=== PATIENT | male | born 1950 | race Caucasian/White ===

== ENCOUNTER 2016-09-11 14:46 | Emergency (ER) | payer MEDICARE, OTHER ==
--- NOTE | ~2016-09-11 | CR72 ---
[facility] A Service of [facility] & [facility] / [facility] RADIOLOGY TEXT RESULTS PATIENT: MIGUE ARIAS LOCATION: [facility] : 49 UNIT #: [id number] AGE: [address]: Corey Duval MD SEX: M ORDER DR: [id number] [facility] [address] [place], [place] [address] [id number] E MR#: [id number] Acc #: [id number] NAME: MIGUE ARIAS. : 1950 SEX: M STUDY DATE/TIME: 09/11/2016 15:37 UNIT: [facility] ROOM: STUDY DESCRIPTION: CR Chest Single View Portable Attending Physician: Corey Duval Ordering Physician: Ed Doctor [id number] [facility] Primary Care Physician: Gregory Lino Jr., M.D. MEDICAL IMAGING REPORT This report is preliminary unless electronic signature is present EXAM AP portable chest 09/11/2016 COMPARISON 07/29/2016 HISTORY Chest pain, irregular heart rate beginning today. FINDINGS An AP view is obtained. Cardiac size is normal. Vascular pattern is normal. There is some linear atelectasis or scarring in the left base. CONCLUSION Linear atelectasis or scarring in the left lung base, new. Dictated by... Gregory Chapa M.D. THIS IS AN ELECTRONICALLY VERIFIED REPORT Gregory Chapa M.D. at 09/12/2016 7:26 AM PALLAVI/saji TD: 09/11/2016 16:14 JOB #: [id number] MEDICAL IMAGING REPORT Page 1 of 1 COPY
--- NOTE | ~2016-09-11 | EKG ---
PATIENT: MIGUE ARIAS UNIT #: [id number] Ventricular Rate: 104 BPM Atrial Rate: 104 BPM P-R Interval: 128 ms QRS Duration: 90 ms Q-T Interval: 338 ms QTC Calculation(Bezet): 444 ms P [place]: 60 degrees Calculated R [place]: 57 degrees Calculated T [place]: 43 degrees Diagnosis Line: Sinus tachycardia with frequent Premature Diagnosis Line: ventricular complexes Diagnosis Line: Otherwise normal ECG Diagnosis Line: When compared with ECG of 15-JUL-2011 12:51, Diagnosis Line: Premature ventricular complexes are now Present Diagnosis Line: Confirmed by MEG MESA MD ([id number]) on 09/12/2016 Diagnosis Line: 10:38:01 AM INTERPRETING MD: MOSHE TOMLINSON
[~2016-09-11 14:46] MED LIST: ACETAMINOPHEN650 M2 PO; ASPIRIN PO; DOCU SOFT100 M1 PO; FLAGYL PO; LEVAQUIN750 MG PO; LIPITOR PO; LISINOPRIL PO; LORTAB 5/500 TA1 TA1 PO; LORTAB 7.5-5001 TAB PO; NIASPAN PO; NORVASC PO; PERCOCET5/325 PO; PHENERGAN PO; PLAVIX; PREDNISONE PO; PRILOSEC PO; PROVENTIL17 GM IH; ROBITUSSIN A-C-S1 ML PO; SYMBICORT INH; TAMIFLU75 M1 PO; TASPRIN325 MG PO; VIBRAMYCIN100 M1 PO; VICODIN 5/1 TAB 5/50 PO; ZESTORETIC 20/11 TAB PO
[2016-09-11 15:35] LABS: POC - TROPONIN <0.05 ng/mL (<=0.05)
[2016-09-11 15:53] LABS: BASOPHIL% 0.2 % (0-2.5); HEMATOCRIT 45.4 % (38.0-50.0); HEMOGLOBIN 15.1 gm/dL (13.0-16.0); LYMPHOCYTE# 1.4 X10e3 (1.0-3.5); LYMPHOCYTE% 7.3 % (17.0-45.0); MEAN CORPUSCULAR HEMOGLOBIN 30.2 PG (28-34); MEAN CORPUSCULAR HGB CONC 33.2 g/dL (30-36); MEAN PLATELET VOLUME 7.8 FL (6.5-11.5); MONOCYTE# 0.4 X10e3 (0-1.0); MONOCYTE% 2.2 % (3.0-12.0); NEUTROPHIL# 17.7 X10e3 (1.5-7.1); NEUTROPHIL% 90.3 % (40-75); PLATELET COUNT 344 X10e3 (140-420); RED BLOOD COUNT 4.99 X10e (3.90-5.60); RED CELL DISTRIBUTION WIDTH 14.4 % (11.0-15.5); WHITE BLOOD COUNT 19.6 X10e3 (4.0-10.5)
[2016-09-11 15:59] LABS: DIFF IND YES
[2016-09-11 16:08] LABS: BUN/CREATININE RATIO 13.33; CALCIUM SERUM 9.4 mg/dL (8.4-10.2); CREATININE SERUM 1.5 mg/dL (0.6-1.4); GLOM FILT RATE Estimated 47.5 mL/min (>60); POTASSIUM 4.4 mmol/L (3.5-5.1)
[2016-09-11 16:20] LABS: PLATELET ESTIMATE NORMAL (NORMAL); RBC NORMAL YES
== END 2016-09-11 18:56 | disposition home or self-care (01) ==
LOC: CED 14:46
PROVIDERS: Emergency Medicine
DX: I49.3 Ventricular premature depolarization (principal); E78.5 Hyperlipidemia, unspecified; F17.210 Nicotine dependence, cigarettes, uncomplicated; Z98.890 Other specified postprocedural states; Z88.2 Allergy status to sulfonamides
CPT/HCPCS: 36415; 71010; 80048; 82553; 83735; 84443; 84484; 85025; 93005; 96374; 99284; J3490

== ENCOUNTER → 2016-10-03 | Outpatient (CLI) | payer MEDICARE, OTHER ==
--- NOTE | ~2016-10-03 | ST ---
Unit #: [id number] #: [id number] Patient: MIGUE ARIAS [id number] [address] [address] [id number] O MR#: [id number] NAME: MIGUE ARIAS : 1950 SEX: M STUDY DATE/TIME: 10/03/2016 UNIT: [facility] ROOM: STUDY DESCRIPTION: Cardiac stress test. Attending Physician: Jay Thao M.D. Referring Physician: Jay Thao M.D. Primary Care Physician: Gregory Lino Jr., M.D. CARDIOLOGY REPORT EXAM Cardiac stress test. Results included in Cardiolite imaging report. Dictated by... Quang Guillory M.D. PJR/gz TD: 10/03/2016 13:04 JOB #: [id number] CARDIOLOGY REPORT Page 1 of 1 X Quang Guillory MD CARDIOLOGY REPORT
--- NOTE | ~2016-10-03 | TH ---
Unit #: [id number] #: [id number] Patient: MIGUE ARIAS [id number] [address] [place], [place] [address] [id number] O MR#: [id number] NAME: MIGUE ARIAS : 1950 SEX: M STUDY DATE/TIME: 10/03/2016 UNIT: [facility] ROOM: STUDY DESCRIPTION: Cardilite imaging Attending Physician: Jay Thao M.D. Referring Physician: Jay Thao M.D. Primary Care Physician: Gregory Lino Jr., M.D. CARDIOLOGY REPORT EXAM Stress ECG and nuclear combined. INDICATION Tachycardia, hypertension, dyslipidemia, tobacco abuse, chronic obstructive pulmonary disease. PROCEDURE The patient exercised on the Jd protocol to maximal effort. Technetium 99m Cardiolite 11.36 and 32.5 mCi was injected at rest and stress respectively. Appropriate views were obtained. FINDINGS The resting ECG showed T wave inversion in AVL. During stress there were single PVCs, which did not change in frequency until peak stress, when there was 1 PVC couplet. The patient received Lexiscan intravenously while at rest. Heart rate increased from 75 to 139 and blood pressure decreased from 147/88 to 134/100. The patient did not experience any symptoms. Perfusion images demonstrated significant intestinal artifact at both rest and stress. There is mild diaphragmatic artifact. Otherwise perfusion is normal and equivalent between rest and stress. Planar images demonstrate slight patient motion with stress, but no patient motion at rest. Left ventricular size appears upper normal. Right ventricular size is not well seen. There is no increase in lung uptake. Summed stress scores is 1, summed difference scores is 1. Gated perfusion wall motion analysis demonstrates normal wall motion throughout the myocardium with end-diastolic volume of 109 ml, ejection fraction 51%. IMPRESSION 1. Myocardial perfusion scan demonstrates no ischemia or infarction. 2. Low normal ejection fraction. 3. Upper normal left ventricular size. 4. Normal stress Lexiscan ECG. 5. Frequent PVCs at peak stress. Dictated by... Quang Guillory M.D. Unit #: [id number] #: [id number] Patient: MIGUE ARIAS AMY/jacquelyn TD: 10/03/2016 12:24 JOB #: [id number] CARDIOLOGY REPORT Page 1 of 1 X Quang Guillory MD CARDIOLOGY REPORT
== END | disposition home or self-care (01) ==
LOC: CNUC 06:29
DX: R06.00 Dyspnea, unspecified (principal); I10 Essential (primary) hypertension; E78.5 Hyperlipidemia, unspecified; J44.9 Chronic obstructive pulmonary disease, unspecified; R94.30 Abnormal result of cardiovascular function study, unspecified
CPT/HCPCS: 78452; 93017; 93306; A9500; J2785

== ENCOUNTER 2016-11-02 16:17 | Emergency (ER) | payer MEDICARE, OTHER ==
--- NOTE | ~2016-11-02 | CT16 ---
[facility] A Service of [facility] & [facility] RADIOLOGY TEXT RESULTS PATIENT: IMGUE ARIAS LOCATION: SED : 48 UNIT #: [id number] AGE: [address]: IGNACIA DAMON SEX: M ORDER DR: [id number] [address] [address] [id number] E MR#: [id number] Acc #: [id number] NAME: MIGUE ARIAS : 1950 SEX: M STUDY DATE/TIME: 11/02/2016 18:55 UNIT: [facility] ROOM: STUDY DESCRIPTION: CT Angio Chest for PE Attending Physician: Ignacia Damon Aprn Ordering Physician: Ignacia Damon Aprn Primary Care Physician: Gregory Lino Jr., M.D. MEDICAL IMAGING REPORT This report is preliminary unless electronic signature is present. EXAM CT chest with contrast, pulmonary arteriography protocol, 11/02/2016 HISTORY 66-year-old male in the ED complaining of right rib and right side chest pain after coughing earlier today. TECHNIQUE CT examination of the chest was performed with IV contrast using pulmonary arteriography protocol. CTA images of the pulmonary arteries were reformatted in multiple planes. This CT examination was performed with one or more of the following radiation dose reduction techniques: automatic exposure control, adjustment of mA and/or kV according to patient size, and iterative reconstruction. COMPARISON LD-CT lung cancer screening study, 08/09/2015. CT abdomen, 09/10/2013. FINDINGS No pulmonary embolism is demonstrated. Thoracic aorta is normal in caliber. Heart size is normal, there is no pericardial effusion. Lung images show mild paraseptal emphysema at the lung apices. Hazy ground-glass infiltrate in the peripheral right lower lobe. Mucoid opacification of a few right lower lobe bronchi and right lower lobe central bronchial wall thickening. The findings suggest acute bronchiolitis and potential early right lower lobe pneumonia. Remaining portions of both lungs are clear. No pleural effusion. There is a 1.1 cm well-defined pulmonary nodule in the right lower lobe near the diaphragm that is new since prior studies. Short interval followup chest CT in 3-4 months is indicated. Two tiny nodular opacities [facility]. [facility] A Service of [facility] & [facility] RADIOLOGY TEXT RESULTS PATIENT: MIGUE ARIAS LOCATION: SED : 48 UNIT #: [id number] AGE: [address]: IGNACIA DAMON SEX: M ORDER DR: in the left lung base are unchanged. Aneurysmal dilatation of the visualized upper abdominal aorta measuring up to 3.9 cm. This segment measured about 3.7 cm on 07/11/2013. IMPRESSION 1. No evidence of pulmonary embolism. Normal-caliber thoracic aorta. 2. Likely right lower lobe bronchitis with bronchial wall thickening and fluid opacification of central right lower lobe bronchi. Mild ground-glass infiltrate is also present in the peripheral right lower lobe. Remaining portions of both lungs are clear. 3. Mild emphysema at the lung apices. 4. New 1.1 cm right lower lobe pulmonary nodule, not present on the lung cancer screening study of 08/09/2015. This may be inflammatory, but developing lung cancer is not excluded. Short interval followup chest CT in 3-4 months is recommended. 5. Tiny nodular opacities in the left lung base are unchanged since prior studies. 6. Aneurysmal dilatation of the upper abdominal aorta measuring up to 3.9 cm. This measured about 3.7 cm on the previous study of 09/10/2013. Remaining portions of the abdominal aorta are not included on this exam. Dictated by... Migue Bautista M.D. THIS IS AN ELECTRONICALLY VERIFIED REPORT Migue Bautista M.D. at 11/03/2016 12:52 PM ERLIN/amando TD: 11/03/2016 10:24 JOB #: [id number] MEDICAL IMAGING REPORT Page 1 of 1
[2016-11-02 17:59] LABS: PROTHROMBIN TIME (PATIENT) 11.7 SECONDS (9.5-12.4)
[2016-11-02 18:07] LABS: ALBUMIN SERUM 4.1 g/dL (3.5-5.0); BILIRUBIN,TOTAL 0.2 mg/dL (0.2-2.0); BUN/CREATININE RATIO 13.63; CALCIUM SERUM 9.1 mg/dL (8.4-10.2); CREATININE SERUM 1.1 mg/dL (0.6-1.4); GLOM FILT RATE Estimated 69.1 mL/min (>60); POTASSIUM 3.8 mmol/L (3.5-5.1); PROTEIN TOTAL SERUM 7.9 g/dL (6.0-8.3)
[2016-11-02 18:25] LABS: BASOPHIL# 0.1 X10e3 (0-0.3); BASOPHIL% 0.8 % (0-2.5); EOSINOPHIL# 0.6 X10e3 (0-0.7); EOSINOPHIL% 4.3 % (0.0-7.0); HEMATOCRIT 43.2 % (38.0-50.0); HEMOGLOBIN 14.5 gm/dL (13.0-16.0); LYMPHOCYTE# 2.6 X10e3 (1.0-3.5); LYMPHOCYTE% 17.2 % (17.0-45.0); MEAN CELL VOLUME 90.7 FL (83-96); MEAN CORPUSCULAR HEMOGLOBIN 30.5 PG (28-34); MEAN CORPUSCULAR HGB CONC 33.6 g/dL (30-36); MEAN PLATELET VOLUME 7.8 FL (6.5-11.5); MONOCYTE# 1.4 X10e3 (0-1.0); MONOCYTE% 9.5 % (3.0-12.0); NEUTROPHIL# 10.2 X10e3 (1.5-7.1); NEUTROPHIL% 68.2 % (40-75); PLATELET COUNT 389 X10e3 (140-420); RED BLOOD COUNT 4.76 X10e (3.90-5.60); RED CELL DISTRIBUTION WIDTH 14.2 % (11.0-15.5); WHITE BLOOD COUNT 14.9 X10e3 (4.0-10.5)
[2016-11-02 18:26] LABS: DIFF IND NO
== END 2016-11-02 20:15 | disposition home or self-care (01) ==
LOC: SED 16:17
PROVIDERS: Nurse Practitioner Family
DX: M94.0 Chondrocostal junction syndrome [Tietze] (principal); J18.9 Pneumonia, unspecified organism; F17.210 Nicotine dependence, cigarettes, uncomplicated; Z88.2 Allergy status to sulfonamides; Z79.82 Long term (current) use of aspirin; Z79.899 Other long term (current) drug therapy
CPT/HCPCS: 71275; 80053; 85025; 85610; 85730; 99285; Q9967

== ENCOUNTER → 2016-11-28 | Outpatient (CLI) | payer MEDICARE, OTHER ==
--- NOTE | ~2016-11-28 | US11 ---
[facility] A Service of [facility] & [facility] RADIOLOGY TEXT RESULTS PATIENT: MIGUE ARIAS LOCATION: [facility] : 48 UNIT #: [id number] AGE: [address]: Shanika Hadley SEX: M ORDER DR: [id number] [address] [address] [id number] P MR#: [id number] Acc #: [id number] NAME: MIGUE ARIAS : 1950 SEX: M STUDY DATE/TIME: 11/28/2016 8:27 UNIT: [facility] ROOM: STUDY DESCRIPTION: US Aorta Duplex Complete Attending Physician: Shanika Hadley A.P.R.N. Referring Physician: Shanika Hadley A.P.R.N. Ordering Physician: Gregory Lino Jr., M.D. Primary Care Physician: Gregory Lino Jr., M.D. MEDICAL IMAGING REPORT This report is preliminary unless electronic signature is present. EXAM AAA duplex HISTORY AAA. FINDINGS The proximal aorta is partially obscured by bowel gas. There is a velocity of 64 cm/sec, however dimensions cannot be obtained. The mid aorta measures 3.3 x 3.9 cm, with a velocity of 74 cm/sec. The distal aorta measures 3.1 x 3.2 cm. The right common iliac artery measures 0.9 x 1.2 cm, with a velocity of 115 cm/sec. The left common iliac artery measures 0.9 x 0.8 cm, with a velocity of 160 cm/sec. IMPRESSION There is a small infrarenal abdominal aortic aneurysm, measuring 2.3 x 3.9 cm at its greatest diameter in the mid portion. This represents an increase in size from its previous measurement of 3.1 cm back in 10/2015. Dictated by... Thaddeus Giles M.D. THIS IS AN ELECTRONICALLY VERIFIED REPORT Thaddeus Giles M.D. at 12/02/2016 9:52 AM Gerry TD: 11/28/2016 11:08 JOB #: [id number] [facility] A Service of [facility] & [facility] RADIOLOGY TEXT RESULTS PATIENT: MIGUE ARIAS LOCATION: [facility] : 48 UNIT #: [id number] AGE: [address]: Shanika Hadley SEX: M ORDER DR: MEDICAL IMAGING REPORT Page 1 of 1
== END | disposition home or self-care (01) ==
LOC: SGUS 08:21
DX: I71.4 Abdominal aortic aneurysm, without rupture (principal)
CPT/HCPCS: 93978